=== PATIENT | female | born 1985 | race Caucasian/White ===

== ENCOUNTER 2016-09-25 15:37 | Emergency (ER) | payer MEDICAID ==
[2016-09-25] MEDS ORDERED: ONDANSETRON 4 MG VIAL ONE (17:29)
[2016-09-25] MEDS ORDERED: SODIUM CHLORIDE 0.9% 1,000 ML ONE (17:48)
== END 2016-09-25 20:14 | disposition home or self-care (01) ==
LOC: ER 15:37
DX: O26.891 Other specified pregnancy related conditions, first trimester (principal); R10.2 Pelvic and perineal pain; R11.0 Nausea; Z3A.08 8 weeks gestation of pregnancy
CPT/HCPCS: 36415; 76817; 80053; 81003; 83690; 84702; 84703; 85025; 86901; 87491; 87591; 87800; 96361; 96374